=== PATIENT | female | born 1995 | race Two or more races ===

== ENCOUNTER 2024-06-22 14:05 | Outpatient (CLI) | payer OTHER ==
[~2024-06-22] VITALS: Ht 172.7 cm; Wt 82.1 kg
[2024-06-22 13:19] VITALS: BP 114/73
[2024-06-22] MEDS ORDERED: PRENATAL TABLE1 EAC1 PO (14:24)
[2024-06-22 15:00] LABS: URINE APPEARANCE Turbid; URINE BILIRRUBIN Negative (NEGATIVE); URINE BLOOD Negative; URINE COLOR Yellow; URINE GLUCOSE Negative (NEGATIVE); URINE KETONE Negative (NEGATIVE); URINE LEUKOCYTE Large; URINE NITRATE Negative; URINE PROTEIN Negative (NEGATIVE); URINE UROBILINOGEN 0.2 E.U./dl
[2024-06-22 15:13] LABS: URINE BACTERIA 6926.9 uL (0.0-1933); URINE EPITHELIAL CELLS 69.2 uL (0.0-38.8); URINE RBC 5.3 uL (0.0-20.8); URINE WBC 38.8 uL (0.0-23.2)
[2024-06-22 15:29] LABS: URINE CAST 0.45 uL (0.0-1.40); URINE CRYSTALS MODERATE /HPF
[2024-06-22 15:30] LABS: URINE MUCUS SCANT
[2024-06-22 16:00] VITALS: BP 104/67
[2024-06-22 20:10] VITALS: BP 112/64
== END 2024-06-23 11:34 | disposition home or self-care (01) ==
LOC: OBS/DEL 14:05
PROVIDERS: Obstetrics & Gynecology; ATTEND Obstetrics & Gynecology
DX: O26.853 Spotting complicating pregnancy, third trimester (principal); Z3A.33 33 weeks gestation of pregnancy; O26.849 Uterine size-date discrepancy, unspecified trimester; O36.8199 Decreased fetal movements, unspecified trimester, other fetus; O60.00 Preterm labor without delivery, unspecified trimester

== ENCOUNTER 2024-08-08 23:09 | Inpatient (IN) | payer OTHER ==
[~2024-08-08] VITALS: Ht 152.4 cm; Wt 90.7 kg
[2024-08-08 22:43] VITALS: BP 126/84
[~2024-08-08 23:09] MED LIST: PRENATAL TABLE1 EAC1 PO
[2024-08-08] MEDS ORDERED: RINGERS SOLUTION,LACTATED 1,000 ML IV SCH (23:15)
[2024-08-08 23:19] VITALS: BP 126/84
[2024-08-08 23:45] LABS: HEMATOCRIT 37.5 % (36.0-45.00); HEMOGLOBIN 12.8 g/dL (12.0-15.00); MEAN CELL VOLUME 92.6 fL (80.00-100.00); MEAN CORPUSCULAR HEMOGLOBIN 31.6 pg (27.00-32.0); MEAN CORPUSCULAR HGB CONC 34.2 g/dl (32.0-36.0); PLATELET COUNT 218 K/uL (150-450); RED BLOOD COUNT 4.05 M/uL (4.00-6.00); RED CELL DISTRIBUTION WIDTH 14.1 % (11.5-14.5)
[2024-08-09] VITALS (9 sets, daily range): BP systolic 108–146; BP diastolic 64–89
[2024-08-09 00:05] LABS: INR < 0.93; PARTIAL THROMBOPLASTIN TIME 29.9 SECONDS (22.0-34.0); PROTHROMBIN TIME 10.2 SECONDS (9.0-11.5)
[2024-08-09 00:11] LABS: BILIRUBIN TOTAL 0.25 mg/dL (0.3-1.2); CALCIUM 8.6 mg/dL (8.5-10.1); CREATININE SERUM 0.77 mg/dL (0.55-1.02); GFR 88.02; GLOBULINA 3.6 G/DL (2.4-3.5); POTASSIUM 3.99 mEq/L (3.5-5.1); TOTAL PROTEIN 6.6 gm/dL (6.4-8.2)
[2024-08-09] MEDS ORDERED: OXYTOCIN 10 UNITS/ML VIAL IM STA (01:29)
[2024-08-09] MEDS ORDERED: CHLORHEXIDINE GLUCONATE 120 ML BOTTLE TOP SCH (01:30)
[2024-08-09] MEDS ORDERED: OXYTOCIN 1,000 ML IV SCH (01:30)
[2024-08-09] MEDS ORDERED: LIDOCAINE HCL 1% 10ML VIAL IJ ONE (02:30)
[2024-08-09] MEDS ORDERED: ACETAMINOPHEN 500 MG GEL..CAP PO ONE (02:30)
[2024-08-09] MEDS ORDERED: CARBOPROST TROMETHAMINE 250 MCG/ML AMPUL IM ONE (02:30)
[2024-08-09] MEDS ORDERED: ERYTHROMYCIN BASE OPHT 1GM EACH TUBE OP ONE (02:30)
[2024-08-09] MEDS ORDERED: ACETAMINOPHEN 500 MG GEL..CAP PO PRN (04:00)
[2024-08-09 06:48] LABS: HEMOGLOBIN 12.4 g/dL (12.0-15.00); MEAN CELL VOLUME 92.7 fL (80.00-100.00); MEAN CORPUSCULAR HEMOGLOBIN 31.9 pg (27.00-32.0); MEAN CORPUSCULAR HGB CONC 34.4 g/dl (32.0-36.0); PLATELET COUNT 203 K/uL (150-450); RED BLOOD COUNT 3.88 M/uL (4.00-6.00); RED CELL DISTRIBUTION WIDTH 14.4 % (11.5-14.5)
[2024-08-09] MEDS ORDERED: GABAPENTIN 300 MG CAPSULE PO NR (14:30)
[2024-08-10] VITALS: BP 103/63
[2024-08-10 08:37] VITALS: BP 135/66
[2024-08-10] MEDS ORDERED: GABAPENTIN 300 MG CAPSULE PO SCH (09:00)
[2024-08-10 16:47] VITALS: BP 140/85
[2024-08-10 16:49] VITALS: BP 101/66
[2024-08-11] VITALS: BP 103/60; BP 107/65
[2024-08-11 08:34] VITALS: BP 102/67
== END 2024-08-11 13:06 | disposition home or self-care (01) | DRG 807 ==
LOC: LDR 23:09 → OB/GYN 23:09
PROVIDERS: ADMIT Obstetrics & Gynecology; ATTEND Obstetrics & Gynecology
PROC: 4A1HXCZ Monitoring of Products of Conception, Cardiac Rate, External Approach (ICD-10-PCS; 2024-08-08)
PROC: 10E0XZZ Delivery of Products of Conception, External Approach (ICD-10-PCS; principal; 2024-08-09)
PROC: 0KQM0ZZ Repair Perineum Muscle, Open Approach (ICD-10-PCS; 2024-08-09)
DX: O70.1 Second degree perineal laceration during delivery (principal); Z37.0 Single live birth; Z3A.40 40 weeks gestation of pregnancy; Z20.822 Contact with and (suspected) exposure to COVID-19